=== PATIENT | female | born 1965 | race Caucasian/White ===

== ENCOUNTER 2020-11-16 11:41 | Emergency (ER) | payer BC, SELFPAY ==
--- NOTE | ~2020-11-16 | US_ITS ---
EXAMINATION: US soft tissue UE LT DATE: 11/16/2020 15:34 INDICATION: Olecranon bursitis TECHNIQUE: Multiple grayscale and Doppler ultrasound images of the posterior left elbow and proximal forearm were obtained. COMPARISON: None FINDINGS: Reticular pattern of decreased echogenicity within the subcutaneous fat overlying the olecranon and p osterior aspect of the proximal left ulna consistent with edema potentially in the setting of celluli tis. No discrete fluid collection to suggest bursitis. No evident elbow joint effusion or other abnor mal fluid collections. IMPRESSION: 1. Subcutaneous edema posterior to the olecranon and proximal ulna potentially related to cellulitis. No drainable fluid collection at the olecranon bursa to suggest bursitis. Reviewed, dictated and finalized at location A.
[2020-11-16 11:47] VITALS: BP 149/97; PULSE 101; RESP 14; TEMP 36.1; O2SAT 99
[2020-11-16] MEDS: HYDROcodone/acetaminophen (*CRX) 5-325 MG TABLET 1 TAB PO (12:31)
[2020-11-16 13:04] LABS: Basophils Percent Auto 0.5 % (0.2-1.2); Eosinophils Absolute Auto 0.2 K/mm3 (0-0.3); Eosinophils Percent Auto 3.4 % (0-4.4); Hematocrit 37.3 % (37.0-47.0); Hemoglobin 12.2 g/dL (12.0-15.0); Immature Granulocyte Absolute 0.04 K/mm3 (0.00-0.031); Immature Granulocyte Percent A 0.6 % (0-0.5); Lymphocytes Absolute Auto 0.92 K/mm3 (0.9-3.2); Lymphocytes Percent Auto 14.3 % (18.3-44.2); Mean Corpuscular HGB Conc 32.7 g/dl (32-36); Mean Corpuscular Hemoglobin 29.6 pg (26-34); Mean Corpuscular Volume 90.5 fl (80-100); Mean Platelet Volume 9.6 fl (7.4-10.4); Monocytes Absolute Auto 0.3 K/mm3 (0.1-0.6); Monocytes Percent Auto 5.3 % (2.6-8.5); Neutrophils Absolute Auto 4.9 K/mm3 (1.3-6.7); Neutrophils Percent Auto 75.9 % (45.5-73.1); Platelet Count Result 232 k/mm3 (150-375); Red Blood Count 4.12 M/mm3 (4.2-5.4); Red Cell Distribution Width 12.9 % (11.5-14.5); White Blood Count 6.4 K/mm3 (4.5-10.0)
[2020-11-16 13:22] LABS: Anion Gap 9 mmol/L (8-16); Blood Urea Nitrogen 20 mg/dL (7-17); CRP 5.9 mg/dL (<1.0); Calcium 9.7 mg/dL (8.4-10.2); Carbon Dioxide 26 mmol/L (22-30); Chloride 104 mmol/L (98-107); Estimated CRCL calculation 117 ml/min; Estimated Glomerular Filt Rate > 60; Glucose 217 mg/dL (65-105); Potassium 3.7 mmol/L (3.4-5.0); Sodium 139 mmol/L (137-145)
[2020-11-16 14:00] VITALS: BP 137/75; PULSE 97; RESP 18; O2SAT 100
[2020-11-16 14:09] LABS: Erythrocyte Sedimentation Rate 86 mm/hr (0-20)
--- NOTE | 2020-11-16 14:22 | ED.WOUNDLAC ---
HPI - Wound/Laceration General Chief Complaint: Wound/Laceration Stated Complaint: L ELBOW REDNESS Time Seen by Provider: 11/16/20 11:52 History of Present Illness HPI narrative: Patient is a 55-year-old female who presents ER with left elbow pain and swelling. Noticed it 3 days ago. Was seen by PCP yesterday. Diagnosed with bursitis and they are working on Ortho referral. Patient reports last night she had fever up to 100.5 ?F. Redness is extending down the arm and she feels like there is some swelling of the arm. She still maintains full range of motion. No known trauma to her elbow. Swelling over the olecranon has not increased. No drainage. Related Data Home Medications Medication Instructions Recorded Confirmed fluticasone propionate 50 2 spray NASAL DAILY 04/07/19 07/26/20 mcg/actuation nasal spray,suspension mecobalamin (vitamin B12) 5,000 mcg PO 04/07/19 07/26/20 mcg disintegrating tablet omeprazole 20 mg capsule,delayed 20 mg PO DAILY 04/07/19 07/26/20 release olopatadine 0.1 % eye drops 1 drop EACH EYE BID 12/15/19 07/26/20 Allergies Allergy/AdvReac Type Severity Reaction Status Date / Time fluoxetine AdvReac Mild Heartburn Verified 11/15/20 11:41 Review of Systems Review of Systems: All systems reviewed & are unremarkable except as noted in HPI and below Constitutional: Constitutional: Denies chills, Reports fever(s) and Denies weakness Musculoskeletal: Musculoskeletal: Denies arthralgias, Denies joint swelling and Denies muscle cramps Comments: Swelling of the left olecranon Integumentary/Breasts: Skin/Breast: Reports erythema Neurologic: Denies focal weakness and Denies numbness [facility] Past Medical History Medical History (Updated 11/16/20 @ 16:08 by Kamran Casey MD) Essential (primary) hypertension Hyperglycemia Hypothyroidism Family History Family History Mother Hypertension Family history of elevated blood lipids, Onset Age: 80 Sibling Asthma Father Patient's father is Social History Social History Smoking packs per day: 0.5 Smoking cigarettes per day: 10.0 Years smoked: 10 Smoking pack-years: 5.00 Smoking status: Former smoker Second hand tobacco smoke exposure: No Smoking end date: 05/06/92 Alcohol intake: current Drinks per week: 4 Substance use: never Exam Narrative: Exam Narrative: GENERAL: Well-appearing, well-nourished, and in no acute distress. HEAD: Normocephalic, atraumatic. CHEST: Clear to auscultation. No respiratory distress. HEART: Regular rate and rhythm. Normal peripheral pulses.s. EXTREMITIES: Normal range of motion. Swelling at the location of the left olecranon bursa with dried skin overlying it. SKIN: Warm, dry. Slight erythema and tenderness to the left olecranon bursa with pinkish hue extending to mid forearm but not proximally up the triceps. NEURO: No focal deficits. Alert and oriented x3. PSYCH: Normal mood and affect. Course Course Emergency Course: Concern for bursitis. Discussed with Dr. Perea who recommended radiology tap the bursa for fluid. Radiology imaging shows that patient is suffering more from cellulitis and not bursitis. Patient be started on antibiotics and recommend follow-up with her PCP. Vital Signs Vital signs: Vital Signs Temperature 97.0 F L 11/16/20 11:47 Pulse Rate 101 H 11/16/20 11:47 Respiratory Rate 14 11/16/20 11:47 Blood Pressure 149/97 H 11/16/20 11:47 Pulse Oximetry 99 11/16/20 11:47 Temperature 97.0 F L 11/16/20 11:47 Pulse Rate 101 H 11/16/20 11:47 Respiratory Rate 14 11/16/20 11:47 Blood Pressure 149/97 H 11/16/20 11:47 Pulse Oximetry 99 11/16/20 11:47 MDM - Wound/Laceration Lab Data Result diagrams: 11/16/20 12:45 11/16/20 12:45 Labs: Lab Results
[2020-11-16 16:16] VITALS: BP 136/72; PULSE 92; RESP 15; O2SAT 100
== END 2020-11-16 16:18 | disposition home or self-care (01) ==
PROVIDERS: Emergency Provider Emergency Medicine; PCP Internal Medicine
DX: L03.114 Cellulitis of left upper limb (principal); I10 Essential (primary) hypertension; E03.9 Hypothyroidism, unspecified; Z87.891 Personal history of nicotine dependence
CPT/HCPCS: 36415; 76882; 80048; 85025; 85652; 86140; 99284; A9270

== ENCOUNTER → 2021-04-26 15:32 | Outpatient (CLI) | payer BC, SELFPAY ==
--- NOTE | ~2021-04-26 | MR_ITS ---
EXAMINATION: MR cervical spine wo con DATE: 04/26/2021 16:19 INDICATION: Cervical radiculopathy. TECHNIQUE: Magnetic resonance imaging (MRI) of the cervical spine was performed without intravenous c ontrast. Sequences included sagittal T2-weighted FSE, sagittal STIR FSE, sagittal T1-weighted FSE, ax ial MERGE, and axial T2-weighted FSE. COMPARISON: None FINDINGS: There is kyphosis of cervical spine. Vertebral body heights are normal. There is mildly dec reased disc height at C4-C5 and moderately decreased disc height at C5-C6 and C6-C7. The spinal cord signal intensity is normal. The following disc levels are specifically discussed: C2-C3: The disc does not extend beyond the endplate margin. There is mild right uncovertebral joint o steoarthritis. There is severe right and moderate left facet joint osteoarthritis. There is mild righ t neural foraminal stenosis. There is no central canal stenosis. C3-C4: The disc does not extend beyond the endplate margin. There is mild right and severe left uncov ertebral joint osteoarthritis. There is mild right and severe left facet joint osteoarthritis. There is mild right and moderate left neural foraminal stenosis. There is no central canal stenosis. C4-C5: The disc is bulging. There is severe right and moderate left uncovertebral joint osteoarthriti s. There is severe right and mild left facet joint osteoarthritis. There is moderate right and mild l eft neural foraminal stenosis. There is mild central canal stenosis with ventral indentation of the s albin cord. C5-C6: The disc is bulging. There is severe bilateral uncovertebral joint osteoarthritis. There is se epi right and mild left facet joint osteoarthritis. There is moderate right and mild left neural for aminal stenosis. There is mild central canal stenosis with ventral indentation of the spinal cord. C6-C7: The disc is bulging. There is severe bilateral uncovertebral joint osteoarthritis. There is mi ld bilateral facet joint osteoarthritis. There is mild right and moderate left neural foraminal steno sis. There is mild central canal stenosis with ventral indentation of the spinal cord. C7-T1: The disc does not extend beyond the endplate margin. There is no uncovertebral joint osteoarth ritis. There is moderate and severe left facet joint osteoarthritis. There is mild left neural forami nal stenosis. There is no central canal stenosis. IMPRESSION: 1. Moderate cervical spondylosis. Reviewed, dictated and finalized at location A. L STRETCHER
== END ==
PROVIDERS: PCP Internal Medicine; Visit Provider Orthopaedic Surgery
DX: M47.813 Spondylosis without myelopathy or radiculopathy, cervicothoracic region (principal); M48.03 Spinal stenosis, cervicothoracic region
CPT/HCPCS: 72141

== ENCOUNTER 2021-11-08 07:58 | Outpatient (RCR) | payer BC, SELFPAY ==
--- NOTE | 2021-11-08 09:55 | PTOPEVAL ---
PHYSICAL THERAPY INITIAL EVALUATION. Thank you for referring Shvia Florence to [facility].? The patient is scheduled to be seen for therapy? 1x/week for 4 weeks. Please review, sign, date and return this plan of care DYLAN. I agree with and certify that the following plan of care is medically necessary. Referring Physician Date Attending Provider: Aaron Ledezma DO *PT Outpatient Evaluation Start: 11/08/21 Evaluation Information Diagnosis neck and L shoulder pain Onset ~1 year Subjective Information Pt reports about a one year Query Text:As Reported By Patient/ history of neck and shoulder Family pain. Pt reports her shoulder and arm pain used to be a 10/ 10 but this has since gotten better. She has completed therapy in the past and this helped, she quit therapy around March and states she could handle her pain on her own. Pt states she takes a few Alive a day to help manage the pain. Today she reports tightness in her neck and anterior shoulder pain. Pain Assessment Neck Reported Pain Level 0 Lowest Pain Intensity 0 Greatest Pain Intensity 4 Left Shoulder(s) Reported Pain Level 2 Pain Description Aching,Tightness Pain Frequency Acute,Intermittent Lowest Pain Intensity 0 Greatest Pain Intensity 4 Pain Aggravating Factors Supine Cervical and Lumbar ROM Cervical ROM Cervical Flexion (0-60) 30 active Cervical Extension (0-70) 30 active Cervical Lateral Flexion Right (0-50) 15 active Cervical Lateral Flexion Right (0-50) 30 passive Cervical Lateral Flexion Left (0-50) 18 active Cervical Lateral Flexion Left (0-50) 30 passive Cervical Rotation Right (0-90) 45 active Cervical Rotation Right (0-90) 60 passive Cervical Rotation Left (0-90) 45 active Cervical Rotation Left (0-90) 60 passive Cervical ROM 50% of Normal Cervical ROM Comments - cues to limit substitutions during active movement Upper Extremity Range of Motion Gross Upper Extremity Range of Motion L shoulder active flexion 134 Comments L shoulder active abduction 150 R shoulder active flexion 145 R shoulder active abduction 165 Upper Extremity Muscle Strength Testing Gross Upper Extremity Strength Comments L elbow flexion/extension 4/5
--- NOTE | 2021-12-28 09:04 | PCPTNOTE ---
Attending Provider: Aaorn Ledezma DO Patient:Shiva Florence Date of :1965 PHYSICAL THERAPY DISCHARGE SUMMARY. Per pt she is doing well and no longer requires skilled therapy services, therefore she will be discharged at this time. Patient?s initial visit was on 11/08/2021 and she had a total of 1 visits. The goals have been not addressed. Thank you for referring this patient to [facility]. Please review, sign, date and return this discharge summary DYLAN. I have been updated about the patient's current status and I agree with discharge from the above service at this time. Referring Physician Date
== END 2022-01-01 15:00 | disposition home or self-care (01) ==
LOC: ANHHIPT 07:58
PROVIDERS: PCP Internal Medicine; Visit Provider Internal Medicine
DX: M54.2 Cervicalgia (principal); M25.512 Pain in left shoulder
CPT/HCPCS: 97110; 97140; 97161

== ENCOUNTER 2022-09-11 13:30 | Outpatient (RCR) | payer BC, SELFPAY ==
--- NOTE | 2022-08-17 16:37 | PTOPEVAL1 ---
Assessment and note entered by Mally Davey, PT Evaluation Information Assessment Status Evaluation Diagnosis Radiculopathy cervical region Onset 2020 Subjective Information Pt reports in 2020 had severe pain in left shoulder found with MRI severe cervical arthritis. Went to physical therpay for ~2 months. Slowly got better after this. Pt reports left arm pain, to elbow but not beyond elbow at this time. Previously had pain into lower arm. 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 Reported Pain Level Pain Score 3,4: Self Report Assessment PT Clinical Summary Pt presents w/ complaints of neck pain with pain into her left arm. Prior MRI imaging shows severe arthritis, evaluation shows decreased cervical ROM , abnormal postures, and abnormal muscle tone. Pt will benefit from physical therapy to address deficits, improve ROM, decompress cervical spine, and reduce pain to allow her to perform her daily and work related activities with less pain. Plan of Care Interventions Electrical Stimulation,Hot Pack/Cold Pack,Manual Therapy,Mechanical Traction,Neuro Re-education, Therapeutic Activities,Therapeutic Exercise, Ultrasound PT Services Indicated Yes Treatment Frequency and 2x weekly x 4 weeks Duration These treatments will address the objective and functional deficits as defined above. The patient will be advanced safely and appropriately in order for the patient to progress towards his/her prior level of function. Additional exercises will be introduced and as well as a comprehensive home exercise program upon discharge, if needed, ?to ensure carryover of functional gains achieved in the clinic. This treatment plan has been reviewed and agreement upon by the patient.
--- NOTE | 2022-09-11 14:27 | PTOPDC ---
Assessment and note entered by Mally Davey, PT Evaluation Information Assessment Status Discharge Diagnosis Radiculopathy cervical region Onset 2020 Subjective Information Pt reports with neck and arm 80% improved overall. Still having pain in the left shoudler. More she moves her shoulder worse it hurts. Changing clothes is challenging. Modifiying how she lays for her left shoulder. Reported Pain Level Pain Score 0,2: Self Report Assessment PT Clinical Summary Pt has attended therapy consistently for cervical radiculopathy. Pt reports her neck feeling 80% overall. States sometimes has pain with certain movements. Objectively she has improved in postures, muscle tone, and LATASHA, but left shoulder is still bothersome. Pt reports understanding her home exercises and when to return to therapy if needed for neck or shoulder pain. Has not fully met her goals however has opted to cease therapy at this time.
== END 2022-09-13 08:52 | disposition home or self-care (01) ==
LOC: ANHHIPT 13:30
PROVIDERS: PCP Internal Medicine; Visit Provider Internal Medicine
DX: M54.12 Radiculopathy, cervical region (principal)
CPT/HCPCS: 97012; 97014; 97110; 97140; 97162; G0283

== ENCOUNTER 2024-08-24 12:30 | Outpatient (RCR) | payer OTHER, SELFPAY ==
--- NOTE | 2024-08-05 13:54 | PTOPEVAL1 ---
Assessment and note entered by Mally Davey, PT Evaluation Information Assessment Status Evaluation Diagnosis pain in right knee ICD-10 Condition Codes (PT) Pain in right knee M25.561,Weakness R53.1 Onset ~5 months Subjective Information Pt reports has had the pain for less than a year, but about 5 months ago. Knelt down to get a chart, and had excruciating pain while kneeling on the right knee. Tried not to do it again, and forgot and did it again. Went away and didn't have real pain until about 2 weeks ago. Pivoting, and sitting>stand would feel like it was going to give out Wants to start walking for fitness. Reports numb feeling over the top of the knee cap x-rays show small bone spur States steps/stairs and walking on uneven surfaces is more bothersome Reported Pain Level Pain Score 0: Self Report Assessment PT Clinical Summary Pt presents with right knee pain that began initially 5 months ago but didn't start to be bothersome consistently until the last two weeks. Pain is worst with kneeling, stairs, and pt has difficulty with uneven ground and sit>stands it give out at times. Pt demonstrates laterally deviated patella with increased genu valgus, (+) MCL laxity testing, decreased strength RLE > LLE, and iliotibial band tightness. Pt will benefit from therapy to address deficits, improve discomfort, and improve overall stability to allow her to participate in fitness related activities without difficulty. Plan of Care Interventions Electrical Stimulation,Hot Pack/Cold Pack,Manual Therapy,Neuro Re-education,Patient/Caregiver Education,Therapeutic Activities,Therapeutic Exercise,Self-Care/Home Management,Ultrasound, Other Other Interventions Taping, bracing PT Services Indicated Yes Treatment Frequency and 1-2x weekly x 12 visits Duration These treatments will address the objective and functional deficits as defined above. The patient will be advanced safely and appropriately in order for the patient to progress towards his/her prior level of function. Additional exercises will be introduced and as well as a comprehensive home exercise program upon discharge, if needed, ?to ensure carryover of functional gains achieved in the clinic. This treatment plan has been reviewed and agreement upon by the patient.
--- NOTE | 2024-08-05 13:54 | OPREHPOC ---
Outpatient Therapy Plan of Care This is a Multidisciplinary Plan of Care that may contain components documented by all disciplines (PT, OT, and ST.) PT Problem 1 PT Problem #1 Knowledge Deficit PT Goal 1 Goal / Goal Update Pt will be independent in HEP Pt will verbalize understanding of diagnosis and prognosis Target Visit 6 PT Problem 2 PT Problem #2 Pain PT Goal 1 Goal / Goal Update Pt will report greatest pain level at 3/10 or less to improve ADLs and activities Target Visit 6 PT Goal 2 Goal / Goal Update Pt will report resolution of pain to return to PLOF Target Visit 12 PT Problem 3 PT Problem #3 Impaired Strength PT Goal 1 Goal / Goal Update Pt will demonstrate RLE strength equal to LLE in all tested planes Target Visit 6 PT Goal 2 Goal / Goal Update Pt will demonstrate 4+/5 strength in all tested planes for improved knee stability Target Visit 12
--- NOTE | 2024-08-24 13:07 | PTOPDC ---
Assessment and note entered by Mally Davey, PT Evaluation Information Assessment Status Discharge Diagnosis pain in right knee ICD-10 Condition Codes (PT) Pain in right knee M25.561,Weakness R53.1 Onset ~5 months Subjective Information Pt presents and states is unable to continue therapy due to therapy co-pay. Reports has to watch herself with steps really closely. Pain is better, is just stiff now. Still has the low grade pain and occasionally a 5/[address] the wrong [address]. Numbness over the knee cap is sporadic. Using the brace has been able to initiate walking for fitness Reports can't kneel on her knees still, but getting in and out of the car is much better. Reported Pain Level Pain Score 0: Self Report Assessment PT Clinical Summary Pt was able to attend 6 therapy sessions at which time she was able to reduce her overall pain, and improve function without pain. She has been able to initiate walking for fitness with use of an over the counter knee brace as well. However she was not able to complete her therapy plan of care due to her co-pay and financial restrictions. Pt was provided information for updated HEP, and how to access a more customized brace if needed in the future. Pt would like to leave her plan open a few weeks to see if she is able to receive an MRI and pending findings return to therapy. Thus if patient does not return by September 07, we will discharge her at that time. Plan of Care PT Services Indicated Yes
== END 2024-08-24 13:19 | disposition home or self-care (01) ==
LOC: ANHHIPT 12:30
PROVIDERS: PCP Nurse Practitioner Family; Visit Provider Nurse Practitioner Family
DX: M25.561 Pain in right knee (principal)
CPT/HCPCS: 97035; 97110; 97161; 97530; 97750

== ENCOUNTER 2024-09-05 07:40 | Outpatient (CLI) | payer OTHER, SELFPAY ==
--- NOTE | ~2024-09-05 | MR_ITS ---
MRI of the right knee Clinical history: Pain Technique: Coronal proton density and proton density-weighted images, sagittal proton-density and T2 fat-sat images, and axial proton-density fat-saturated images were acquired. Findings: Anterior and posterior cruciate ligaments are intact. Medial collateral ligament and the la teral collateral ligament conflux are intact. Popliteus tendon is intact. There is a radial tear at the posterior root of the medial meniscus. No lateral meniscal tear seen. There is moderate chondromalacia patella, especially at the medial facet. There is patchy moderate to high-grade chondral malacia the femoral trochlea, especially along the medial facet and centrally. T here is moderate chondromalacia along the medial femoral condyle, especially the inner aspect. There is osteophyte formation at the medial joint line. There is mild patellofemoral compartment osteophyte formation. Extensor mechanism is intact. Moderate joint effusion present. Probable small ruptured Prado's cyst. Impression: Radial tear of the posterior of the medial meniscus. Degenerative change, as detailed above, mild to moderate in degree. Moderate joint effusion with probable small ruptured Prado's cyst. Reviewed, dictated and finalized at location . Impression: Radial tear of the posterior of the medial meniscus. Degenerative change, as detailed above, mild to moderate in degree. Moderate joint effusion with probable small ruptured Prado's cyst.
== END 2024-09-05 07:41 | disposition home or self-care (01) ==
LOC: MICIMG 07:41
PROVIDERS: PCP Nurse Practitioner Family; Visit Provider Nurse Practitioner Family
DX: S83.241A Other tear of medial meniscus, current injury, right knee, initial encounter (principal); M25.361 Other instability, right knee; M17.11 Unilateral primary osteoarthritis, right knee; M25.461 Effusion, right knee; X58.XXXA Exposure to other specified factors, initial encounter
CPT/HCPCS: 73721

== ENCOUNTER 2024-09-17 14:38 | Outpatient (CLI) | payer OTHER, SELFPAY ==
--- OUTSIDE RECORDS SUMMARY | 2024-09-17 14:42 | XMS_ITS | Clinical Summary ---
Author Organization [facility] Address [address] [place] [address] Care Team Providers Care Physician Coding Specialist Name Role Phone Jurgen Eleanor GILMORE Primary Care Provider [phone] Allergies No known active allergies Medications albuterol sulfate HFA 108 (90 Base) MCG/ACT inhaler INHALE 2 PUFFS BY MOUTH EVERY 4 TO 6 HOURS NEEDED FOR SHORTNESS OF BREATH OR WHEEZING 0 Active levothyroxine (SYNTHROID) 137 MCG tablet Take 137 mcg by mouth every morning. Active lisinopril 30 MG tablet Take 20 mg by mouth daily. Active tiZANidine 4 MG tablet Take 4 mg by mouth every 6 (six) hours as needed (neck and shoulder pain.). Active sertraline 50 MG tablet Take 50 mg by mouth daily. Active Active Problems Problem Noted Date Diagnosed Date Hypothyroidism 08/21/2021 Appendicitis 08/14/2021 Small bowel obstruction ([facility]) 2013 Family History Medical History Relation Comments Breast Cancer Maternal Aunt Breast Cancer Mother Cancer Mother Relation Status Comments Brother Alive Father Maternal Aunt Mother Sister Alive Social History Tobacco Use Types Packs/Day Years Used Date Smoking Tobacco: Never Smokeless Tobacco: Never Tobacco Cessation:Counseling Given: Yes Alcohol Use Standard Drinks/Week Comments Yes 0 (1 standard drink = 0.6 oz pur e alcohol) socially PHQ-2 Answer Date Recorded PHQ-2 Score - If the patient scores above 3, please move on to questions 3-9 0 08/21/2021 Comments No Sex and Gender Information Value Date Recorded Sex Assigned at Not on file Legal Sex Female 5:33 PM CDT Gender Identity Not on file Sexual Orientation Straight 08/21/2021 3: 46 PM CDT 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 Not on file Not on file Last Filed Vital Signs Vital Sign Reading Time Taken Comments Blood Pressure 122/72 08/28/2021 12:58 PM CDT Pulse 82 08/28/2021 12:58 PM CDT Temperature 36.5 C (97.7 F) 08/28/2021 12:58 PM CDT Respiratory Rate 16 08/21/2021 11:29 AM CDT Oxygen Saturation 98% 08/28/2021 12:58 PM CDT Inhaled Oxygen Concentration - - Weight 93 kg (205 lb) 08/28/2021 12:58 PM CDT Height 165.1 cm (5' 5 ) 08/28/2021 12:58 PM CDT Body Mass Index 34.11 08/28/2021 12:58 PM CDT Plan of Treatment Health Maintenance Due Date Last Done Comments Colorectal Cancer Screening Colonoscopy (10 Years) 1965 Annual Physical 1966 Hepatitis C 1981 DTaP, Tdap and Td Vaccines (1 - Tdap) 1982 Pneumococcal Vaccine: 50+ Years (1 of 1 - PCV) 2013 Zoster Vaccines (1 of 2) 2013 COVID-19 Vaccine (1 - season) 2024 Mammogram Screening 04/14/2026 04/14/2024, 04/11/2023, 01/10/2022, Additional history exists RSV Immunization or 60+ Years (1 - 1-dose 75+ series) 2038 Meningococcal B Vaccine Aged Out No l onger eligible based on patient's age to complete this topic Meningococcal Vaccine Aged Out No jaya elton eligible based on patient's age to complete this topic RSV Immunizations Under 20 Months Aged Out No longer eligible based on patient's age to complete this topic Goals Goal Patient Goal Type Associated Problems Recent Progress Patient-Stated? 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 Stable mammographic appearance with no new findings to suggest malignancy in either breast. Assessment: ACR BI-RADS 2 - BENIGN FINDING(S) Recommendation: 1:Routine Screening Bilateral Comments: Ordered By: SARA MERCHANT Interpreted By: Jovon Coates, 04/15/2024 7:21 AM Narrative 04/15/2024 7:37 AM COMPUTER MECHANIC [facility] [address] [place] [address] EXAMINATION: Digital bilateral screening mammogram with 3-D tomosynthesis EXAM DATE/TIME: 04/14/2024 12:25 PM REASON FOR EXAM: YEARLY Breast carcinoma in mother at age 80. Maternal aunt at age 70 COMPARISON: 01/10/2022. 04/11/2023 Technique: Digital screening mammography of both breasts was performed in addition to 3-D Tomosynthesis technique. This study was read with the assistance of a computer-aided detection system. Tissue density: There are scattered areas of fibroglandular density. Findings: There is no new focal asymmetry, dominant mass lesion, area of skin thickening, or cluster of suspicious appearing calcifications in either breast to suggest malignancy. us Sara Merchant DELI ASSOCIATE MAMMO Final Result from Last 3 Months or Most Recently Relevant to Health Maintenance Insurance [employer] Advance Directives * Full Code (Latest Code Status on File) Date Activated Date Inactivated Comments 08/14/2021 12:53 AM 08/16/2021 3:12 PM Care Teams Physician Coding Specialist Relationship Specialty Start Date End Date Eleanor Seaman FNP [facility] [place] [address] PCP - General Nurse Practitioner Family 04/10/23
--- NOTE | 2024-09-17 14:46 | ECG_ITS ---
Test Date: 2024-09-17 15:09:59 Measurements Intervals [place] Rate: 87 P: 17 [place]: 173 QRS: 6 QRSD: 107 T: 46 QT: 347 QTc: 418 Interpretive Statements SINUS RHYTHM LOW QRS VOLTAGE IN PRECORDIAL LEADS [QRS DEFLECTION < 1.0 mV IN CHEST LEADS] POSSIBLE ANTERIOR MYOCARDIAL INFARCTION [30 ms Q WAVE IN V3/V4, OR R < 0.2 mV IN V4], OF INDETERMINATE AGE ABNORMAL ECG No previous ECG available for comparison Electronically Signed On 09-18-2024 09:46:56 CDT by Tyson Owens M.D.
[2024-09-17 15:32] LABS: Anion Gap 7 mmol/L (4-12); Blood Urea Nitrogen 20 mg/dL (7-17); Carbon Dioxide 28 mmol/L (22-30); Chloride 105 mmol/L (98-107); Estimated Glomerular Filt Rate > 60; Glucose 125 mg/dL (65-110); Sodium 140 mmol/L (137-145)
== END 2024-09-17 14:39 | disposition home or self-care (01) ==
PROVIDERS: Anesthesiology; PCP Nurse Practitioner Family; Visit Provider Orthopaedic Surgery
DX: Z01.818 Encounter for other preprocedural examination (principal); E11.9 Type 2 diabetes mellitus without complications; I10 Essential (primary) hypertension; R94.31 Abnormal electrocardiogram [ECG] [EKG]
CPT/HCPCS: 36415; 80048; 93005

== ENCOUNTER 2024-09-21 00:34 | Day surgery (SDC) | payer OTHER, SELFPAY ==
[2024-09-16 13:08] VITALS: BMI 32.6
--- NOTE | 2024-09-16 13:09 | PC.NURSE ---
Report to the Outpatient Waiting Room, entrance under the green pavilion located off [facility], at time _1pm_ on date _[id number]_. Planned Procedure Time: _3pm_. Time changes happen often and if your time is changed the preop area will call you the afternoon before. - You and your visitor will be asked to self-screen and do not enter if you have any COVID symptoms. Please call surgeon if you need to reschedule. - A mask is optional within the hospital at this time. Patients may have clear liquids (water, carbonated beverages, clear teas, apple juice) until 3 hours prior to surgery with a maximum of 20 ounces. - No food from midnight until time of surgery and no smoking, or chewing tobacco (or any form of nicotine). No chewing gum, candy or mints. Take only the following medications with a SIP of water on the morning of surgery: ___Levothyroxine, Sertraline and Flonase.____ DO NOT STOP ANY OF YOUR OTHER PRESCRIPTION MEDICATIONS PRIOR TO SURGERY EXCEPT THE FOLLOWING Hold all vitamins and supplements for 3 days per anesthesiologist. Medications to discontinue per physician Date to take last ncvj___[phone]___ Please no make-up, nail romanian, hairspray, perfume, deodorant, or body powder the day of surgery. No jewelry (including any body piercings) or valuables the day of surgery, leave them at home. Please take a shower or bath the night before, or the morning of, surgery with an antibacterial soap. Wear comfortable, loose fitting clothing. - Jewelry must be removed prior to entering the operating room. Rings and piercings that are not removed may be cut off. - The hospital will not accept responsibility for valuables. - Please leave all valuables, including medications, at home the day of surgery. If you are going home after surgery, a licensed reach lift truck driver must drive you home. - NO public transportation without another adult if you receive anesthesia. - We recommend that an adult stay with you for 24 hours following discharge. - We also recommend that you do not drive, make important decision, drink alcoholic beverages, or take any drugs that were not prescribed by your health care provider for at least 24 hours after your discharge time. Follow any additional instructions given to you from your surgeon. Telephone instructions given to __Shiva___and asked if any additional questions and then verbalized understanding. Patient advised to call surgeon office or pre surgery nurse liaison [phone] if any additional questions.
[2024-09-21] VITALS (8 sets, daily range): BP systolic 113–145; BP diastolic 69–99; PULSE 69–84; RESP 12–16; TEMP 36.3–36.4; O2SAT 97–99; BMI 32.8
--- OUTSIDE RECORDS SUMMARY | 2024-09-21 00:37 | XMS_ITS | Clinical Summary ---
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 Not on file Not [...] perform ADLs independently 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 Stable mammographic appearance with no new findings to suggest malignancy in either breast. Assessment: ACR BI-RADS 2 - BENIGN FINDING(S) Recommendation: 1:Routine Screening Bilateral Comments: Ordered By: SARA MERCHANT Interpreted By: Jovon Coates, 04/15/2024 7:21 AM Narrative 04/15/2024 7:37 AM COFFERDAM CONSTRUCTION SUPERVISOR [facility] [address] [place] [address] EXAMINATION: Digital bilateral screening mammogram with 3-D [...] breast to suggest malignancy. us Sara Merchant COREMAKER BENCH MAMMO Final Result from Last 3 Months or Most Recently Relevant to Health Maintenance Insurance [employer]ET[employer] Advance Directives * Full Code (Latest Code Status on File) Date Activated Date Inactivated Comments 08/14/2021 12:53 AM 08/16/2021 3:12 PM Care Teams Electroplating Laborer Relationship Specialty Start Date End Date Eleanor Seaman FNP [facility] [place] [address] PCP - General Nurse Practitioner Family 04/10/23
--- NOTE | 2024-09-21 08:39 | WPDHPUPDATE1 ---
History and Physical Update Update Date/Time: 09/21/24 08:39 History and Physical has been reviewed, including an updated exam of the patient. There are NO changes in the patient's condition. Risks, benefits, and alternatives have been discussed and questions answered. Patient agrees to proceed with procedure.
[2024-09-21] MEDS: ceFAZolin 2 GM/D5W 50 ML 2 GM/50 ML BAG IVPB (12:59)
[2024-09-21 13:37] LABS: Glucose Point of Care 99 mg/dl (65-105)
[2024-09-21] MEDS: KETOROLAC 15 MG/ML VIAL (*BKC) IV PUSH (13:53)
[2024-09-21] MEDS: ACETAMINOPHEN 500 MG TABLET 1000 MG PO (13:53)
--- NOTE | 2024-09-21 14:38 | WPDANESEPPF ---
Anes - Initial Pre Proc Eval Procedure: Operation Date: 09/21/24 15:00 Proposed Procedures p Right Knee Arthroscopic Partial Medial Meniscectomy - Darren Zimmer MD Date/Time: 09/21/24 14:38 Surgeon: Darern Zimmer MD Pre Op Diagnosis: Right Knee Medial Meniscus tear Patient Data Age: 59 Gender: F Height: 1.65 m Weight: 89.6 kg Last Vital Signs Temp 36.4 C 09/21/24 13:25 Pulse 81 09/21/24 13:25 Resp 16 09/21/24 13:25 BP 117/78 09/21/24 13:25 Pulse Ox 98 09/21/24 13:25 Allergies Allergy/AdvReac Type Severity Reaction Status Date / Time metformin AdvReac Intermediate Diarrhea Verified 09/21/24 13:22 fluoxetine AdvReac Mild Heartburn Verified 09/21/24 13:22 Home Medications Medication Instructions Recorded Confirmed Type fluticasone propionate 50 2 spray intranasal DAILY 04/07/19 09/21/24 History mcg/actuation nasal spray,suspension (Flonase Allergy Relief) [id number]-[id number] ac 400 1 tablet PO DAILY 10/05/22 09/16/24 History mcg-calcium carb 500 mg-vit K1 20 mcg tablet (Women's 50 Plus Multivitamin) levothyroxine 150 mcg tablet 150 mcg PO DAILY #90 tabs 11/22/23 09/21/24 Rx lisinopril 10 mg tablet 10 mg PO DAILY #90 tabs 03/03/24 09/16/24 Rx cholecalciferol (vitamin D3) 1,250 1,250 mcg PO WEEKLY #12 caps 06/25/24 09/16/24 Rx mcg (50,000 unit) capsule sertraline 50 mg tablet (Zoloft) 50 mg PO DAILY #90 tabs 07/31/24 09/21/24 Rx semaglutide 0.25 mg or 0.5 mg (2 0.25 mg (0.368 mL) subcut WEEKLY 09/07/24 09/16/24 Rx mg/3 mL) subcutaneous pen injector #3 mL (Ozempic) hydrocodone 5 mg-acetaminophen 325 1 - 2 tablet PO Q4-6H PRN pain #30 09/21/24 Rx mg tablet tabs Laboratory Tests 09/21/24 13:33 POC Capillary Glucose 99 mg/dl (65-105) Patient hx anesthesia problems: none Family hx anesthesia problems: none Results Review: All pre-operative results and documents have been reviewed as part of the pre-operative evaluation. [facility] Past Medical History Medical History Pure hypercholesterolemia, unspecified Mild asthma with exacerbation Hypersomnia Gastro-esophageal reflux disease without esophagitis Bilateral carpal tunnel syndrome Allergies Hx of small bowel obstruction (~2013) Repair Essential (primary) hypertension Hyperglycemia Hypothyroidism Surgical History Surgical History History of sinus surgery (~2009) Small bowel obstruction (2014) History of appendectomy (2020) History of dilatation and curettage x2 History of hysterectomy (~2000) Family History Family History Mother Hypertension Family history of elevated blood lipids, Onset Age: 80 Cancer Sibling Asthma Myasthenia gravis Alcoholism Father Patient's father is Other Cancer Grandparent Cancer Heart disease Grandparent Cancer Social History Social History Social History: 07/28/24 Very confident with medical forms Smoking packs per day: 0.5 Smoking cigarettes per day: 10.0 Years smoked: 10 Smoking pack-years: 5.00 Smoking status: Former smoker Tobacco type: cigarettes Second hand tobacco smoke exposure: No Smoking end date: 05/06/92 Alcohol intake: current Drinks per week: 4 Substance use: never Substance use type: does not use Do You Feel Safe in your Home?: Yes Lack of Transportation: No Lack of Food: Never True Current Housing: I Have Housing Concerned About Future Housing: No Difficulty Paying Gas/Electric Bills: No Difficulty Paying for Meds: No Currently Unemployed: No Education: Associate Degree Difficulty w/ Childcare or Family Care: No Living arrangements: with family Occupation/Education: occupation Additional occupation/education comments: Primary [employer] of [employer] Gender identity (if verbalized by the patient): Female Spiritual care concerns: No Agree to blood products: Yes Anes - Eval Final PreProcedure Day of Procedure 09/21/24 14:38 Patient weight: obese Heart: regular rate and rhythm Lungs: decreased breath sounds Airway: Mallampati scale class II Neurological: alert and oriented Last oral intake: >/= 8 hours ASA classification: III Emergent: no Anesthetic plan: proceed Anesthesia type and monitoring: general LMA and standard monitoring Results Review: All pre-operative results and documents have been reviewed as part of the pre-operative evaluation. Informed Consent: The patient's anesthetic plan and its attendant risks and benefits were discussed with the patient/family/POA. Questions were solicited and answers provided to the satisfaction of the patient/family/POA.
[2024-09-21] MEDS: BUPIVACAINE/EPINEPHRINE 0.5% 10 ML VIAL 30 ML INFILTRATE (15:37)
[2024-09-21] MEDS: LACTATED RINGERS 1,000 ML 30 ML IV CONT (15:46)
[2024-09-21 16:16] LABS: Glucose Point of Care 102 mg/dl (65-105)
--- NOTE | 2024-09-21 17:04 | P.OP_ITS ---
Procedure Note - Detailed Date of Procedure 09/21/24 Pre-op Diagnosis Right Knee Medial Meniscus tear Post-op Diagnosis Same Procedure Performed Arthroscopic partial medial meniscectomy, right knee. Surgeon Darren Zimmer MD Anesthesia General Findings Degenerative tear in the posterior horn of the meniscus. The free edge was just starting to split through and complete the type 2 signal change noted on the MRI. Partial meniscectomy accomplished with the shaver and punches. Small loose cartilage fragment debrided from the superior medial gutter. 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 Lateral femur chondromalacia grade 1, lateral tibia grade 0. Patellar grade 2/3, trochlea grad e 3. Description of Procedure The patient was identified and the surgical site confirmed and signed in the preoperative holding area. Antibiotics were started per protocol, and the patient was brought to the operative room and transferred to the OR table. A general anesthetic was administered. Supine position with the operative lower extremity position in the leg crowell after placement of a well padded tourniquet. The leg support was lowered and the contralateral limb was supported with a soft bolster. The knee was prepped and draped in the usual sterile fashion. A time-out was performed. The portal sites were marked and infiltrated with 0.5% Marcaine 20 mL. The limb was exsanguinated and the tourniquet inflated to 300 mL Hg. Standard inferolateral and inferomedial portals were established. Inflow was obtained with the saline pump. The camera was introduced. Diagnostic inspection of the joint was accomplished. The meniscus was debrided with the arthroscopic shaver and punches until stable. Gentle chondroplasty was performed. A small loose piece of cartilage was debrided from the superior medial gutter. The arthroscopic instruments were removed. The tourniquet released and wounds closed with subcutaneous 4-0 Monocryl absorbable suture. Steri strips and a sterile dressing were applied. A light elastic wrap was placed. The patient was extubated and brought to the recovery room in stable condition. Estimated Blood Loss 5 Drains No Complications No immediate complications Condition Stable Disposition PACU [facility] Billing Surgery - Charge Forward: Surgery Billing
== END 2024-09-21 17:32 | disposition home or self-care (01) ==
PROVIDERS: PCP Nurse Practitioner Family; Visit Provider Orthopaedic Surgery
PROC: (CPT 29870; principal; 2024-09-21 15:00)
DX: S83.241A Other tear of medial meniscus, current injury, right knee, initial encounter (principal); M22.41 Chondromalacia patellae, right knee; M17.11 Unilateral primary osteoarthritis, right knee; I10 Essential (primary) hypertension; R73.9 Hyperglycemia, unspecified; E03.9 Hypothyroidism, unspecified; E78.00 Pure hypercholesterolemia, unspecified; J45.901 Unspecified asthma with (acute) exacerbation; G47.10 Hypersomnia, unspecified; K21.9 Gastro-esophageal reflux disease without esophagitis; W10.9XXA Fall (on) (from) unspecified stairs and steps, initial encounter; Y93.E2 Activity, laundry; E66.9 Obesity, unspecified; Z68.32 Body mass index [BMI] 32.0-32.9, adult; Z79.891 Long term (current) use of opiate analgesic; Z79.85 Long-term (current) use of injectable non-insulin antidiabetic drugs; Z98.890 Other specified postprocedural states; Z90.49 Acquired absence of other specified parts of digestive tract; Z87.891 Personal history of nicotine dependence; Z80.9 Family history of malignant neoplasm, unspecified; Z82.49 Family history of ischemic heart disease and other diseases of the circulatory system
CPT/HCPCS: 29881; 82948; A9270; J0690; J1100; J1885; J2003; J2250; J2405; J2704; J3010; J7120

== ENCOUNTER 2025-01-07 08:53 | Outpatient (CLI) | payer OTHER, SELFPAY ==
--- NOTE | 2025-01-07 08:56 | ECHO_ITS ---
Patient Info Name: Shiva Florence Age: 59 years : 1965 Gender: Female Ht: 65 in Wt: 200 lbs BSA: 2.07 m2 HR: 83 bpm BP: 136 / 101 mmHg Technical Quality: Good Exam Date: 01/07/2025 9:55 AM Patient Status: O Admit Date: 01/07/2025 Exam Type: CA echo doppler color flow Complete two-dimensional, color flow and Doppler transthoracic echocardiogram is performed. Facilities Painter: Karen Huertas Attending Provider: David Rachel DO Summary 1. Complete two-dimensional, color flow and Doppler transthoracic echocardiogram is performed. 2. Left ventricular chamber dimension is normal. 3. Left ventricular systolic function is normal, estimated at 60-65. 4. There is mild concentric increased left ventricular wall thickness. 5. The left ventricular diastolic function is grade I diastolic dysfunction. Left Ventricle Left ventricular chamber dimension is normal. Left ventricular systolic function is normal, estimated at 60-65. There is mild concentric increased left ventricular wall thickness. The left ventricular diastolic function is grade I diastolic dysfunction. E/e' 7 is not elevated. Right Ventricle Right ventricular chamber dimension is normal. Right ventricular systolic function is normal. Left Atria Left atrial chamber dimension is normal. Right Atria Right atrial chamber dimension is normal. Aortic Valve The aortic valve is trileaflet. There is no aortic valve stenosis. There is no aortic valve regurgitation. Pulmonic Valve There is no pulmonic regurgitation. Mitral Valve There is no mitral valve stenosis. There is no mitral valve regurgitation. Tricuspid Valve There is no tricuspid valve regurgitation. Pericardium/Pleural There is no pericardial effusion. Inferior Vena Cava Inferior vena cava is not well visualized. Aorta The aortic root size at the sinus of Valsalva is normal. Left Ventricular Outflow Tract Name Value Normal LVOT 2D LVOT Diameter 2.0 cm LVOT Doppler LVOT Peak Velocity 105 cm/s LVOT Peak Gradient 4 mmHg LVOT Mean Gradient 2 mmHg LVOT VTI 22 cm LVOT Stroke Volume 70 ml LVOT CO 5.8 l/min LVOT CI 2.8 l/min/m2 Pulmonic Valve Name Value Normal RVOT Doppler RVOT Peak Velocity 72 cm/s RVOT Peak Gradient 2 mmHg PV Doppler PV Peak Velocity 98 cm/s PV Peak Gradient 4 mmHg Mitral Valve Name Value Normal MV Diastolic Function MV E Peak Velocity 61 cm/s MV A Peak Velocity 77 cm/s MV E/A 0.8 MV Decel Time (PW) 186 ms MV Annular TDI MV E/e' (Septal) 9.2 MV E/e' (Lateral) 6.8 MV E/e' (Average) 8.0 Aortic Valve Name Value Normal AV Doppler AV Peak Velocity 120 cm/s AV Peak Gradient 6 mmHg AV Area (Cont Eq Kevin) 2.8 cm2 AV DI (Kevin) 0.87 AV Regurgitation 2D LVOT Area 3.2 cm2 Ventricles Name Value Normal LV Dimensions 2D/MM IVS Diastolic Thickness (2D) 1.1 cm 0.6-1.0 LVID Diastole (2D) 4.2 cm 3.8-5.2 LVIW Diastolic Thickness (2D) 1.3 cm 0.6-0.9 LVID Systole (2D) 2.9 cm 2.2-3.5 LVOT Diameter 2.0 cm LV Mass (2D Cubed) 180.16 g 67.00-162.00 LV Mass Index (2D Cubed) 87 g/m2 43-95 Relative Wall Thickness (2D) 0.61 <=0.42 LV Fractional Shortening/Ejection Fraction 2D/MM LV Fractional Shortening (2D) 30 % 27-45 LV EF (2D Teichholz) 58 % LV Diastolic Volume (4C MOD) 71 ml LV EF (4C MOD) 61 % LV Diastolic Volume (2C MOD) 88 ml LV EF (2C MOD) 70 % LV Diastolic Volume (BP MOD) 79 ml 46-106 LV Diastolic Volume Index (BP MOD) 38 ml/m2 29-61 LV Systolic Volume (BP MOD) 27 ml 14-42 LV Systolic Volume Index (BP MOD) 13 ml/m2 8-24 LV EF (BP MOD) 66 % 54-74 LV Diastolic Length (4C) 8.5 cm LV Systolic Length (4C) 7.5 cm LV Stroke Volume (4C MOD) 43 ml Atria Name Value Normal LA Dimensions LA Volume (4C A-L) 25 ml LA Volume (BP A-L) 34 ml RA Dimensions RA Systolic Major Jbphh Length (4C) 4.9 cm 2.2-2.8 RA Area (4C) 13.3 cm2 <=18.0 Report Signatures
--- NOTE | 2025-01-07 08:56 | EST_ITS ---
Patient Info Name: Shiva Florence Age: 59 years : 1965 Gender: Female Ht: 65 in Wt: 200 lbs BSA: 2.07 m2 HR: 82 bpm BP: 139 / 98 mmHg Exam Date: 01/07/2025 8:56 AM Patient Status: O Admit Date: 01/07/2025 Exam Type: CA stress test treadmill An exercise stress test was performed. Staff Attending Provider: David Rachel DO Exercise Technologist: Kaci Montana Exercise Physician: David Rachel DO Summary 1. 1. Negative Ren exercise stress test for ischemic ST changes by ECG criteria. 2. 2. Poor functional capacity, achieving 4.7 METs of workload. 3. 3. Hypertensive response to exercise. 4. 4. Appropriate HR response to exercise. 5. 5. Appropriate HR recovery at 1 minute post exercise. 6. 6. Patient informed of the above results. Protocol: Ren Stress ECG Details Stage: REST Duration (min): 0 min : 55 sec Speed (mph): 0.0 Grade (%): 0 HR (bpm): 82 SBP (mmHg): 139 DBP (mmHg): 98 METS: --- Stage: REST Duration (min): 2 min : 44 sec Speed (mph): 0.0 Grade (%): 0 HR (bpm): 85 SBP (mmHg): 139 DBP (mmHg): 98 METS: --- Stage: STAGE 1 Duration (min): 1 min : 0 sec Speed (mph): 1.7 Grade (%): 10 HR (bpm): 112 SBP (mmHg): 139 DBP (mmHg): 98 METS: --- Stage: STAGE 1 Duration (min): 2 min : 0 sec Speed (mph): 1.7 Grade (%): 10 HR (bpm): 141 SBP (mmHg): 139 DBP (mmHg): 98 METS: --- Stage: STAGE 1 Duration (min): 3 min : 0 sec Speed (mph): 1.7 Grade (%): 10 HR (bpm): 148 SBP (mmHg): 139 DBP (mmHg): 98 METS: --- Stage: RECOVERY Duration (min): 0 min : 59 sec Speed (mph): 0.0 Grade (%): 0 HR (bpm): 135 SBP (mmHg): 219 DBP (mmHg): 100 METS: --- Stage: RECOVERY Duration (min): 1 min : 59 sec Speed (mph): 0.0 Grade (%): 0 HR (bpm): 106 SBP (mmHg): 219 DBP (mmHg): 100 METS: --- Stage: RECOVERY Duration (min): 2 min : 59 sec Speed (mph): 0.0 Grade (%): 0 HR (bpm): 96 SBP (mmHg): 174 DBP (mmHg): 86 METS: --- Stage: RECOVERY Duration (min): 3 min : 59 sec Speed (mph): 0.0 Grade (%): 0 HR (bpm): 95 SBP (mmHg): 174 DBP (mmHg): 86 METS: --- Stage: RECOVERY Duration (min): 4 min : 59 sec Speed (mph): 0.0 Grade (%): 0 HR (bpm): 94 SBP (mmHg): 137 DBP (mmHg): 87 METS: --- Stage: RECOVERY Duration (min): 5 min : 10 sec Speed (mph): 0.0 Grade (%): 0 HR (bpm): 94 SBP (mmHg): 137 DBP (mmHg): 87 METS: --- Rest HR: 85 bpm Peak HR: 149 bpm Rest Sys BP: 139 mmHg Peak Sys BP: 219 mmHg Max Pred HR: 159 bpm % Max Pred HR: 94 % Target HR: 135 bpm Max RPP: 32,631 bpm*mmHg Lira Score: 0 BP Response: Patient exhibited a hypertensive response with stress Termination Reason: Reached target heart rate or workload Cardiac Symptoms: Shortness of breath Max ST Seg Deviation: 0.60 mm Total Time: 3 min : 0 sec Rest Ba BP: 98 mmHg Peak Ba BP: 100 mmHg Angina Score: None Total METS: 4.7 Resting ECG Sinus rhythm. Stress ECG No ST changes. Arrhythmias None. Report Signatures
== END 2025-01-07 08:54 | disposition home or self-care (01) ==
PROVIDERS: PCP Nurse Practitioner Family; Visit Provider Internal Medicine Cardiovascular Disease
DX: R93.1 Abnormal findings on diagnostic imaging of heart and coronary circulation (principal); R06.09 Other forms of dyspnea
CPT/HCPCS: 93017; 93306